=== PATIENT | female | born 1950 | race Caucasian/White ===

== ENCOUNTER 2022-06-20 07:13 | Inpatient (IN) | payer MEDICARE, MEDICAID ==
[2022-06-15 11:03] LABS: BASOPHILS # (AUTO) 0.1 X10'3 (0-0.2); BASOPHILS % (AUTO) 1.3 % (0-1); EOSINOPHILS # (AUTO) 0.6 X10'3 (0-0.9); EOSINOPHILS % (AUTO) 8.2 % (0-6); LYMPHOCYTES # (AUTO) 2.2 X10'3 (1.1-4.8); LYMPHOCYTES % (AUTO) 30.2 % (21-51); MEAN CORPUSCULAR HEMOGLOBIN 31.9 PG (27.0-31.0); MEAN CORPUSCULAR HGB CONC 34.3 g/dL (33.0-36.5); MEAN PLATELET VOLUME 10.9 FL (7.4-10.4); MONOCYTES # (AUTO) 0.8 X10'3 (0-0.9); MONOCYTES % (AUTO) 10.5 % (2-12); NEUTROPHILS # (AUTO) 3.6 X10'3 (1.8-7.7); NEUTROPHILS % (AUTO) 49.8 % (42-75); PRE OP HEMATOCRIT 38.9 % (35.0-45.0); PRE OP HEMOGLOBIN 13.3 g/dL (12.0-16.0); PRE OP PLATELET COUNT 203 X10'3 (140-440); RED BLOOD COUNT 4.18 X10'6 (4.20-5.60)
[2022-06-15 11:13] LABS: PRE OP PROTIME 19.4 SECONDS (9.0-12.0)
[2022-06-15 11:15] LABS: ALBUMIN 3.9 G/DL (3.4-5.0); ALBUMIN/GLOBULIN RATIO 0.9 (1.1-1.5); ALKALINE PHOSPHATASE 106 IU/L (46-116); BLOOD UREA NITROGEN 33 MG/DL (7-18); BUN/CREATININE RATIO 39.3 (6.6-38.0); CALCIUM 9.9 MG/DL (8.5-10.1); CHLORIDE 103 MMOL/L (99-107); CREATININE 0.84 MG/DL (0.40-0.90); PRE OP ALT 34 U/L (30-65); PRE OP ANION GAP 11 (8-16); PRE OP AST 39 U/L (10-37); PRE OP BILIRUB, TOTAL 0.4 MG/DL (0.0-1.0); PRE OP GLUCOSE 157 MG/DL (70-104); PRE OP POTASSIUM 3.6 MMOL/L (3.4-5.1); PRE OP SODIUM 142 MMOL/L (135-145); TOTAL CARBON DIOXIDE 28.3 MMOL/L (24-32); TOTAL PROTEIN 8.1 G/DL (6.4-8.2); eGFR 67 ML/MIN
[2022-06-15 11:26] LABS: HEMOGLOBIN A1C 6.5 % (4.5-6.2)
[~2022-06-20] VITALS: Ht 177.8 cm; Wt 95.1 kg
[2022-06-20] VITALS (19 sets, daily range): BP systolic 91–136; BP diastolic 31–85
[~2022-06-20 07:13] MED LIST: ACET-1013 PO; ATEN-236 PO; CELE-85 PO; DOCUMENT DATE & TIME OF BETA-BLOCKER PO ONE; FURO20TA4 PO; GEMF600T89 PO; LORA10TA7 PO; LOSA1TAB39 PO; METF-1203 PO; OMEP20CA16 PO; POTA8CAP20 PO; PRAV80TA3 PO; SERT-434 PO; WARF4TAB69 PO; ceFAZolin inj. 2,000 MG in dextrose 5%-water 100 ML IV ONE; famotidine 20mg tablet PO ONE; ringers solution, lacted 1,000 ML IV SCH; tranexamic acid 650mg tablet PO ONE; vancomycin 1,500 MG in NS 300ml IV soln IV ONE
--- NOTE | 2022-06-20 07:25 | NUR ---
PT PREPPED FOOR SURGERY, GOOD CMS IN RIGHT EXTREMITY. LEFT HAND HAS A BLUE TINGE TO IT IN THE FINGERTIPS, SENSATION IN INTACT ON BOTH EXTREMITIES, RADIAL PULSES MARKED. PT STATES SHE DID READ THE INFORMATION PACKET AND HAS TALKED TO PATIENTS AT [facility] THAT RECEIVED THE PROCEDURE PT USED THE SPECIAL SOAP FOR 5 DAYS INCLUDING TODAY AND SHE USED THE MURPURICIN IN HER NOSE.
--- NOTE | 2022-06-20 08:00 | NUR ---
3 attempts at IV start on left arm, 2 by me one by constantino with no results. picc nurse called, iv started in left forearm pt/ptt redrew as requested vancomycin ivpb started
[2022-06-20] MEDS ORDERED: fentaNYL/PF 50MCG/1 ML 2ML syringe IV PRN ×2 (08:50)
[2022-06-20] MEDS ORDERED: morphine 4 MG/ML inj SYRINge IV PRN (08:50)
[2022-06-20] MEDS ORDERED: labetalol 20mg/4ml (5mg/ml) syringe IV PRN (08:50)
[2022-06-20] MEDS ORDERED: hydrALAZINE 20mg/ml inj. IV PRN (08:50)
[2022-06-20] MEDS ORDERED: ringers solution, lacted 1,000 ML IV SCH (08:50)
[2022-06-20] MEDS ORDERED: ondansetron/PF 4mg/2ml inj IV PRN ×2 (08:50→14:45)
[2022-06-20] MEDS ORDERED: morphine 2 MG/ML inj. syringe IV PRN (08:50)
[2022-06-20] MEDS ORDERED: ROPIVAcaine 0.2%/PF PUMP/bolus 545 ML INTERSCALE SCH (09:15)
[2022-06-20] MEDS ORDERED: ROPIVAcaine 0.2% (10 MG/5 ML) BOLUS INJECTION INTERSCALE PRN (09:15)
[2022-06-20] MEDS ORDERED: ketorolac trometh. 30mg/ml inj. ONE (10:14)
[2022-06-20] MEDS ORDERED: ROPIVAcaine 0.5% (5mg/ml) 30ml vial ONE ×2 (10:14→11:24)
[2022-06-20] MEDS ORDERED: propofol inj 20 ML IV ONE (11:23)
[2022-06-20] MEDS ORDERED: LIDOcaine 2% (20mg/ml) 5ml vial ONE (11:23)
[2022-06-20] MEDS ORDERED: ondansetron/PF 4mg/2ml inj ONE (12:00)
[2022-06-20] MEDS ORDERED: dexamethasone sod phosphate 10mg/ml inj ONE (12:00)
[2022-06-20] MEDS ORDERED: LIDOcaine 1% (10mg/ml)w/preservative inj. 20ml MDV ONE (12:00)
[2022-06-20] MEDS ORDERED: sevoflurane 250ml liquid IH ONE (12:00)
[2022-06-20] MEDS ORDERED: midazolam 1 mg/ML 2ml injection ONE (12:10)
[2022-06-20] MEDS ORDERED: fentaNYL/PF 50MCG/1 ML 2ML syringe ONE (12:10)
[2022-06-20] MEDS ORDERED: ePHEDrine 50MG/ML INJ. ONE (12:40)
[2022-06-20] MEDS ORDERED: ketorolac trometh. 30mg/ml inj. IV ONE (13:33)
[2022-06-20] MEDS ORDERED: gelatin sponge, absorbable (Gelfoam 100) sponge TP ONE ×2 (13:33→13:37)
[2022-06-20] MEDS ORDERED: ROPIVAcaine 0.5% (5mg/ml) 30ml vial IJ ONE (13:33)
[2022-06-20] MEDS ORDERED: Thrombin (Bovine) 5,000 unit vial TP ONE ×2 (13:33→13:37)
[2022-06-20] MEDS ORDERED: acetaminophen 1,000mg/100ml IV 100 ML IV ONE (13:37)
[2022-06-20] MEDS ORDERED: labetalol 20mg/4ml (5mg/ml) syringe IV ONE (13:55)
--- NOTE | 2022-06-20 14:28 | NUR ---
Received from OR via , accompanied by Anesthesiologist GUCCI and OR NURSE report given by Anesthesiolgist. PT IS DROWSY YET FOLLOWS VERBAL COMMANDS. ON 10 LPM OF 02 ON MASK; ABLE TO TOLERATE 2 LPM OF 02 VIA NC. C/O PAIN TO SHOULDER AT A LEVEL OF 9 AND IS NAUSEA'S; MORPHINE AND ZOFRAN GIVEN WITH RELIEF. ONQ CATHETER TUBING IN PLACE AND MEDICINE ATTACHED. LYDIA DRAIN IN PLACE; BRIGHT RED BLOOD DRAINING. PT NENANA; LEFT HEARING AIDS AT HOME PER ANESTHESIOLOGIST. VSS Addendum: 06/20/22 at 1510 by Nicole Abreu RN Amended: Links added.
[2022-06-20] MEDS ORDERED: acetaminophen 325mg tablet PO PRN (14:45)
[2022-06-20] MEDS ORDERED: naloxone 0.4 mg/ml inj IV PRN (14:45)
[2022-06-20] MEDS ORDERED: magnesium hydroxide 30ml (MOM) UD suspension PO PRN (14:45)
[2022-06-20] MEDS ORDERED: non-formulary drug (Acetaminophen 1 TAB) PO PRN (14:45)
[2022-06-20] MEDS ORDERED: HYDROmorphone inj. 0.5 MG/0.5 ML DISP.SYRIN IV PRN (14:45)
[2022-06-20] MEDS ORDERED: diphenhydrAMINE 25mg capsule PO PRN ×2 (14:45)
[2022-06-20] MEDS ORDERED: HYDROmorphone 1 mg/ml syringe IV PRN (14:45)
[2022-06-20] MEDS ORDERED: bisacodyl 10mg suppository rectal RC PRN (14:45)
[2022-06-20] MEDS ORDERED: HYDROcodone/acetaminophen 10/325mg tab PO PRN ×2 (14:45)
--- NOTE | 2022-06-20 15:58 | NUR ---
Report called to receiving nurse. Transferred via BED. ONE BAG OF Belongings SENT WITH PT. VSS STABLE. REPORTS THAT PAIN IS AT AN ACCEPTABLE LEVEL. PT REPORTS SHE LEFT HEARING AIDS AND DENTURES AT HOME. LYDIA DRAIN WAS NOT EMPTIED BEFORE TRANSPORT TO FLOOR; RECEIVING NURSE NOTIFIED. . Special Issues communicated to receiving nurse. Addendum: 06/20/22 at 1611 by Nicole Abreu RN Amended: Links added.
--- NOTE | 2022-06-20 16:09 | NUR ---
Patient in room PAS IN 900. I have received report from Nicole BOLDEN and had the opportunity to ask questions and assume patient care.patients dressing to right shoulder CDI. LYDIA draining bright red blood, patient A&O x3. will continue to monitor
[2022-06-20] MEDS: potassium cl 20mEq in 1/2 NS 1,000 ML IV SCH ×2 (16:26→22:45)
[2022-06-20] MEDS: oxyCODONE IR 5mg (immed. release) tablet PO PRN ×2 (16:26→23:23)
[2022-06-20] MEDS: potassium chloride 8mEq ER tablet PO SCH (16:26)
--- NOTE | 2022-06-20 16:33 | NUR ---
patient 7/10 pain medicated as per emar. family present will continue to monitor
[2022-06-20] MEDS: ceFAZolin/D5W- 1GM premix 50 ML IV SCH ×2 (17:19→23:19)
--- NOTE | 2022-06-20 18:05 | NUR ---
Patient in room MAKEDA 356. I have received report from KIMI Matos and had the opportunity to ask questions and assume patient care.
[2022-06-20] MEDS: gemfibrozil 600mg tablet PO SCH (19:46)
[2022-06-20] MEDS: sennosides 8.6mg tablet PO SCH (19:46)
[2022-06-20] MEDS: acetaminophen 325mg tablet PO SCH (19:47)
[2022-06-20] MEDS ORDERED: vancomycin/NS 1 GM ADD-VANTAGE 250 ML IV SCH (20:00)
--- NOTE | 2022-06-20 23:57 | NUR ---
medicated for pain x2, powder pack changed q1hrly. LYDIA thacker drained 100mls . up to BSC x3,. DRessing to right shoulder CDI. Report given to og BOLDEN Addendum: 06/21/22 at 0007 by Opal Alonso RN report given to ezequiel bolden
[2022-06-21] MEDS: acetaminophen 325mg tablet PO SCH ×4 (01:54→20:09)
[2022-06-21] MEDS: potassium cl 20mEq in 1/2 NS 1,000 ML IV SCH ×3 (02:23→22:45)
[2022-06-21] MEDS: oxyCODONE IR 5mg (immed. release) tablet PO PRN ×4 (04:19→20:08)
--- NOTE | 2022-06-21 06:25 | NUR ---
Problems reprioritized. Patient report given, questions answered & plan of care reviewed with KIMI Tubbs.
[2022-06-21 07:20] VITALS: BP 133/47
[2022-06-21] MEDS: HYDROchlorothiazide 25mg tablet PO SCH (08:00)
[2022-06-21] MEDS: losartan 50mg tablet PO SCH (08:00)
[2022-06-21] MEDS: potassium chloride 8mEq ER tablet PO SCH (08:05)
[2022-06-21] MEDS: celeCOXIB 100mg capsule PO SCH (08:06)
[2022-06-21] MEDS: metFORMIN 500mg tablet PO SCH (08:07)
[2022-06-21] MEDS: furosemide 20MG tablet PO SCH (08:07)
[2022-06-21] MEDS: atenolol 25mg tablet PO SCH (08:10)
[2022-06-21] MEDS: atorvastatin 20mg tablet PO SCH (08:11)
[2022-06-21] MEDS: sertraline 50mg tablet PO SCH (08:11)
[2022-06-21] MEDS: loratadine 10mg tablet PO SCH (08:12)
[2022-06-21] MEDS: pantoprazole 40mg Tablet.DR PO SCH (08:12)
[2022-06-21] MEDS: gemfibrozil 600mg tablet PO SCH ×2 (09:15→20:09)
--- NOTE | 2022-06-21 09:44 | NUR ---
Joint surgery consult: Pt s/p R shoulder surgery this admit per EMR. Pt very hard of hearing; seen by TASH for written/verbal high protein diet ed w/ RD contact information provided. TASH encouraged pt to contact dietitian's office if further questions/concerns. Addendum: 06/21/22 at [address] Amended: Links added.
[2022-06-21 09:48] LABS: ANION GAP 11 (8-16); CHLORIDE 104 MMOL/L (99-107); POTASSIUM 3.5 MMOL/L (3.5-5.1); SODIUM 141 MMOL/L (135-145); TOTAL CARBON DIOXIDE 25.7 MMOL/L (24-32)
[2022-06-21 09:58] LABS: BASOPHILS % (AUTO) 0.4 % (0-1); EOSINOPHILS # (AUTO) 0.1 X10'3 (0-0.9); EOSINOPHILS % (AUTO) 0.7 % (0-6); HEMATOCRIT 30.2 % (35.0-45.0); HEMOGLOBIN 10.1 g/dl (12.0-16.0); LYMPHOCYTES # (AUTO) 1.5 X10'3 (1.1-4.8); LYMPHOCYTES % (AUTO) 12.7 % (21-51); MEAN CORPUSCULAR HEMOGLOBIN 31.8 PG (27.0-31.0); MEAN CORPUSCULAR HGB CONC 33.5 g/dL (33.0-36.5); MONOCYTES # (AUTO) 1.3 X10'3 (0-0.9); MONOCYTES % (AUTO) 10.8 % (2-12); NEUTROPHILS # (AUTO) 9.1 X10'3 (1.8-7.7); NEUTROPHILS % (AUTO) 75.4 % (42-75); PLATELET COUNT 162 X10'3 (140-440); RED BLOOD COUNT 3.18 X10'6 (4.20-5.60); RED CELL DISTRIBUTION WIDTH 13.8 % (11.5-14.5)
[2022-06-21 12:00] VITALS: BP 110/48
[2022-06-21 12:45] VITALS: BP 99/53
--- NOTE | 2022-06-21 17:34 | NUR ---
Student documentation: I have reviewed and agree with all interventions, assessments performed and documented by SN Agueda.
[2022-06-21 18:00] VITALS: BP 97/51
--- NOTE | 2022-06-21 18:37 | NUR ---
Problems reprioritized. Patient report given, questions answered & plan of care reviewed with KIMI Kirby.
[2022-06-21] MEDS: sennosides 8.6mg tablet PO SCH (20:07)
[2022-06-21] MEDS ORDERED: warfarin 4mg tablet PO SCH (21:00)
[2022-06-21 23:04] VITALS: BP 115/58
[2022-06-22] MEDS: acetaminophen 325mg tablet PO SCH ×3 (02:08→13:57)
[2022-06-22] MEDS: oxyCODONE IR 5mg (immed. release) tablet PO PRN ×2 (05:31→10:09)
[2022-06-22 06:36] VITALS: BP 117/50
[2022-06-22 06:56] LABS: BASOPHILS % (AUTO) 0.5 % (0-1); EOSINOPHILS # (AUTO) 0.5 X10'3 (0-0.9); EOSINOPHILS % (AUTO) 5.9 % (0-6); HEMOGLOBIN 9.8 g/dl (12.0-16.0); LYMPHOCYTES % (AUTO) 23.4 % (21-51); MEAN CORPUSCULAR HEMOGLOBIN 32.5 PG (27.0-31.0); MEAN CORPUSCULAR HGB CONC 34.9 g/dL (33.0-36.5); MEAN CORPUSCULAR VOLUME 93.1 FL (78-98); MEAN PLATELET VOLUME 11.3 FL (7.4-10.4); MONOCYTES # (AUTO) 0.9 X10'3 (0-0.9); MONOCYTES % (AUTO) 11.2 % (2-12); PLATELET COUNT 129 X10'3 (140-440); RED CELL DISTRIBUTION WIDTH 13.8 % (11.5-14.5); WHITE BLOOD COUNT 8.4 X10'3 (4.5-11.0)
[2022-06-22 07:00] VITALS: BP 113/56
[2022-06-22] MEDS: metFORMIN 500mg tablet PO SCH (07:44)
[2022-06-22] MEDS: atorvastatin 20mg tablet PO SCH (07:46)
[2022-06-22] MEDS: potassium chloride 8mEq ER tablet PO SCH (07:47)
[2022-06-22] MEDS: loratadine 10mg tablet PO SCH (07:47)
[2022-06-22] MEDS: furosemide 20MG tablet PO SCH (07:48)
[2022-06-22] MEDS: atenolol 25mg tablet PO SCH (07:49)
[2022-06-22] MEDS: celeCOXIB 100mg capsule PO SCH (07:49)
[2022-06-22] MEDS: pantoprazole 40mg Tablet.DR PO SCH (07:49)
[2022-06-22] MEDS: sertraline 50mg tablet PO SCH (07:50)
[2022-06-22] MEDS: losartan 50mg tablet PO SCH (08:00)
[2022-06-22] MEDS: HYDROchlorothiazide 25mg tablet PO SCH (08:00)
[2022-06-22 09:50] LABS: LARGE PLATELETS FEW; PLATELET ESTIMATE DECREASED
[2022-06-22] MEDS: gemfibrozil 600mg tablet PO SCH (10:09)
[2022-06-22 11:00] VITALS: BP 98/50
--- NOTE | 2022-06-22 13:40 | NUR ---
Report called to KIMI Ny at [facility]. All questions answered. Addendum: 06/22/22 at 1516 by Suly Hemphill RN Patient stable and appropriate for transfer to [facility]. IV removed, all belongings taken from room. Report called to receiving facility. All questions answered.
[2022-06-22] MEDS ORDERED: acetaminophen 325mg tablet PO PRN (14:45)
--- NOTE | 2022-06-28 10:48 | NUR ---
Case Management DC follow up : Patient discharge to [facility] for rehab.
== END 2022-06-22 14:24 | DRG 483 ==
LOC: PAS IN 07:13 → EDSTATUS 10:30 → SUR 3N 16:00
PROVIDERS: ADMIT Orthopaedic Surgery; ATTEND Orthopaedic Surgery
PROC: 0LS30ZZ Reposition Right Upper Arm Tendon, Open Approach (ICD-10-PCS; 2022-06-20)
PROC: 3E0T3BZ Introduction of Anesthetic Agent into Peripheral Nerves and Plexi, Percutaneous Approach (ICD-10-PCS; 2022-06-20)
PROC: 3E0T33Z Introduction of Anti-inflammatory into Peripheral Nerves and Plexi, Percutaneous Approach (ICD-10-PCS; 2022-06-20)
PROC: 0RRJ00Z Replacement of Right Shoulder Joint with Reverse Ball and Socket Synthetic Substitute, Open Approach (ICD-10-PCS; principal; 2022-06-20 12:00)
DX: M19.011 Primary osteoarthritis, right shoulder (principal); M65.811 Other synovitis and tenosynovitis, right shoulder; I10 Essential (primary) hypertension; E11.9 Type 2 diabetes mellitus without complications; K21.9 Gastro-esophageal reflux disease without esophagitis; E66.9 Obesity, unspecified; M75.122 Complete rotator cuff tear or rupture of left shoulder, not specified as traumatic; Z20.822 Contact with and (suspected) exposure to COVID-19; Z79.899 Other long term (current) drug therapy; Z68.30 Body mass index [BMI] 30.0-30.9, adult
CPT/HCPCS: 36415; 80051; 80053; 82948; 83036; 85008; 85025; 85610; 85730; 87081; 87811; 97110; 97116; 97161; 97530; A4615; A4618; A6449; A7000; C1776; G0378; J0131; J0690; J1100; J1170; J1885; J2250; J2270; J2405; J2704; J2795; J3010; J3370; J3480; J3490; J7040; J7060; J7120

== ENCOUNTER 2023-07-06 11:28 | Inpatient (IN) | payer MEDICARE, MEDICAID ==
[2023-06-27 12:18] LABS: BASOPHILS # (AUTO) 0.1 X10'3 (0-0.2); BASOPHILS % (AUTO) 0.9 % (0-1); EOSINOPHILS # (AUTO) 0.8 X10'3 (0-0.9); EOSINOPHILS % (AUTO) 8.9 % (0-6); LYMPHOCYTES # (AUTO) 3.1 X10'3 (1.1-4.8); LYMPHOCYTES % (AUTO) 33.4 % (21-51); MEAN CORPUSCULAR HEMOGLOBIN 31.6 PG (27.0-31.0); MEAN CORPUSCULAR HGB CONC 33.9 g/dL (33.0-36.5); MEAN CORPUSCULAR VOLUME 93.1 FL (78-98); MEAN PLATELET VOLUME 11.7 FL (7.4-10.4); MONOCYTES % (AUTO) 10.1 % (2-12); NEUTROPHILS # (AUTO) 4.4 X10'3 (1.8-7.7); NEUTROPHILS % (AUTO) 46.7 % (42-75); PRE OP HEMATOCRIT 38.9 % (35.0-45.0); PRE OP HEMOGLOBIN 13.2 g/dL (12.0-16.0); PRE OP PLATELET COUNT 202 X10'3 (140-440); PRE OP WHITE BLOOD COUNT 9.4 10'3 (4.8-10.8); RED BLOOD COUNT 4.18 X10'6 (4.20-5.60); RED CELL DISTRIBUTION WIDTH 13.6 % (11.5-14.5)
[2023-06-27 12:37] LABS: ALBUMIN 4.1 G/DL (3.4-5.0); ALBUMIN/GLOBULIN RATIO 1.1 (1.1-1.5); ALKALINE PHOSPHATASE 118 IU/L (46-116); BLOOD UREA NITROGEN 36 MG/DL (7-18); BUN/CREATININE RATIO 32.7 (10.0-20.0); CALCIUM 9.9 MG/DL (8.5-10.1); CHLORIDE 103 MMOL/L (99-107); PRE OP ALT 25 U/L (30-65); PRE OP ANION GAP 13 (8-16); PRE OP AST 29 U/L (10-37); PRE OP BILIRUB, TOTAL 0.5 MG/DL (0.0-1.0); PRE OP GLUCOSE 99 MG/DL (70-104); PRE OP POTASSIUM 3.9 MMOL/L (3.4-5.1); PRE OP SODIUM 142 MMOL/L (135-145); TOTAL CARBON DIOXIDE 26.2 MMOL/L (24-32); eGFR 49 ML/MIN
[2023-07-06] VITALS (18 sets, daily range): BP systolic 105–141; BP diastolic 44–90; PULSE 78–91; RESP 14–18; TEMP 98–99.1; O2SAT 93–98
[~2023-07-06] VITALS: Ht 177.8 cm; Wt 95.1 kg
[~2023-07-06 11:28] MED LIST changes: +CELE-127 PO; -CELE-85 PO; +DUPI300S SQ; +WARF1TAB83 PO; -ceFAZolin inj. 2,000 MG in dextrose 5%-water 100 ML IV ONE; +cefazolin 2gm/D5W 100mL 100 ML IV ONE
[2023-07-06 13:16] LABS: INR 1.1 INR; PROTHROMBIN TIME 11.4 SECONDS (9.0-12.0)
[2023-07-06 13:24] LABS: PRE OP PARTIAL THROMB. TIME 38 SECONDS (22-32)
[2023-07-06] MEDS ORDERED: morphine 4 MG/ML inj SYRINge IV PRN (14:25)
[2023-07-06] MEDS ORDERED: fentaNYL/PF 50MCG/1 ML 2ML syringe IV PRN ×2 (14:25)
[2023-07-06] MEDS ORDERED: ringers solution, lacted 1,000 ML IV SCH (14:25)
[2023-07-06] MEDS ORDERED: labetalol 20mg/4ml (5mg/ml) syringe IV PRN (14:25)
[2023-07-06] MEDS ORDERED: morphine 2 MG/ML inj. syringe IV PRN (14:25)
[2023-07-06] MEDS ORDERED: hydrALAZINE 20mg/ml inj. IV PRN (14:25)
[2023-07-06] MEDS ORDERED: ondansetron/PF 4mg/2ml inj IV PRN ×2 (14:25→18:45)
[2023-07-06] MEDS ORDERED: ketorolac trometh. 30mg/ml inj. ONE (15:49)
[2023-07-06] MEDS ORDERED: LIDOcaine 1%/PF 5ML 10 MG/ML VIAL ONE (15:58)
[2023-07-06] MEDS ORDERED: fentaNYL/PF 50MCG/1 ML 2ML syringe ONE ×2 (15:58→17:56)
[2023-07-06] MEDS ORDERED: ROPIVAcaine 0.5% (5mg/ml) 30ml vial ONE (15:58)
[2023-07-06] MEDS ORDERED: ondansetron/PF 4mg/2ml inj ONE ×2 (15:58→16:03)
[2023-07-06] MEDS ORDERED: propofol inj 20 ML IV ONE (15:58)
[2023-07-06] MEDS ORDERED: sevoflurane 250ml liquid IH ONE (16:03)
[2023-07-06] MEDS ORDERED: PHENYLephrine 10mg/ml 5ml injection IV ONE (16:03)
[2023-07-06] MEDS ORDERED: dexamethasone sod phosphate 10mg/ml inj ONE (16:03)
[2023-07-06] MEDS ORDERED: acetaminophen 1,000mg/100ml IV 100 ML IV ONE (16:42)
[2023-07-06] MEDS ORDERED: ePHEDrine 50MG/ML INJ. ONE (17:02)
[2023-07-06] MEDS ORDERED: ROPIVAcaine 0.2% (10 MG/5 ML) BOLUS INJECTION INTERSCALE PRN (17:25)
[2023-07-06] MEDS ORDERED: ROPIVAcaine 0.5% (5mg/ml) 30ml vial IJ ONE (17:26)
[2023-07-06] MEDS ORDERED: hydrALAZINE 20mg/ml inj. IV ONE (17:54)
[2023-07-06] MEDS ORDERED: labetalol 20mg/4ml (5mg/ml) syringe IV ONE (18:20)
--- NOTE | 2023-07-06 18:36 | NUR ---
Received from OR via HOSPITAL BED TO RR 7, accompanied by Anesthesiologist DR DUCKWORTH and report given by Anesthesiolgist. PT PRESENTS WITH 220G RIGHT FOREARM, LWFT SHOULDER WRAP WITH ON Q READY AND SLING, SPO2 95% MASK 6L, LR RUNNING AT 100MLS/HR, VSS. Addendum: 07/06/23 at 1924 by Orly Ortega RN, RN Amended: Links added.
[2023-07-06] MEDS ORDERED: bisacodyl 10mg suppository rectal RC PRN (18:45)
[2023-07-06] MEDS ORDERED: HYDROmorphone inj. 0.5 MG/0.5 ML DISP.SYRIN IV PRN (18:45)
[2023-07-06] MEDS ORDERED: acetaminophen 325mg tablet PO PRN (18:45)
[2023-07-06] MEDS ORDERED: diphenhydrAMINE 25mg capsule PO PRN ×2 (18:45)
[2023-07-06] MEDS ORDERED: HYDROmorphone 1 mg/ml syringe IV PRN (18:45)
[2023-07-06] MEDS ORDERED: oxyCODONE IR 5mg (immed. release) tablet PO PRN (18:45)
[2023-07-06] MEDS ORDERED: magnesium hydroxide 30ml (MOM) UD suspension PO PRN (18:45)
[2023-07-06] MEDS ORDERED: non-formulary drug (Acetaminophen 1 TAB) PO PRN (18:45)
[2023-07-06] MEDS ORDERED: naloxone 0.4 mg/ml inj IV PRN (18:45)
[2023-07-06] MEDS: ROPIVAcaine 0.2%/PF PUMP/bolus 545 ML INTERSCALE SCH (19:24)
--- NOTE | 2023-07-06 19:40 | NUR ---
Patient in room ORTHO 4011. I have received report from KIMI Arredondo and had the opportunity to ask questions and assume patient care.
--- NOTE | 2023-07-06 19:46 | NUR ---
Report called to receiving nurse KARLOS BOLDEN. Transferred via [facility] BED TO 4011B. BED IN LOW LOCKED POSITION WITH CALL LIGHT IN REACH, PT HOOKED UP TO BEDSIDE VITALS MACHINE. Belongings TAKE TO PT ROOM 2 PT BELONNNGING BAGS. Special Issues communicated to receiving nurse. Addendum: 07/06/23 at 1999 by Orly Ortega RN, RN Amended: Links added.
[2023-07-06] MEDS ORDERED: vancomycin/NS 1 GM ADD-VANTAGE 250 ML IV SCH (20:00)
[2023-07-06] MEDS: potassium cl 20mEq in 1/2 NS 1,000 ML IV SCH (20:20)
[2023-07-06] MEDS: metFORMIN 500mg tablet PO SCH (20:21)
[2023-07-06] MEDS: sennosides 8.6mg tablet PO SCH (20:21)
[2023-07-06] MEDS: acetaminophen 325mg tablet PO SCH (20:21)
[2023-07-06] MEDS: gemfibrozil 600mg tablet PO SCH (21:32)
[2023-07-07] VITALS (8 sets, daily range): BP systolic 97–127; BP diastolic 46–67; PULSE 88–101; RESP 16–24; TEMP 96.8–99.2; O2SAT 92–96
[2023-07-07] MEDS: ceFAZolin/D5W- 1GM premix 50 ML IV SCH ×2 (00:23→08:33)
[2023-07-07] MEDS: acetaminophen 325mg tablet PO SCH ×4 (01:41→20:47)
[2023-07-07] MEDS: oxyCODONE IR 5mg (immed. release) tablet PO PRN ×4 (02:46→22:51)
[2023-07-07] MEDS: potassium cl 20mEq in 1/2 NS 1,000 ML IV SCH ×3 (03:21→18:45)
--- NOTE | 2023-07-07 06:22 | NUR ---
Problems reprioritized. Patient report given, questions answered & plan of care reviewed with WONG Zacarias.
[2023-07-07 06:56] LABS: BASOPHILS % (AUTO) 0.3 % (0-1); EOSINOPHILS % (AUTO) 0.1 % (0-6); HEMATOCRIT 28.9 % (35.0-45.0); HEMOGLOBIN 9.8 g/dl (12.0-16.0); LYMPHOCYTES # (AUTO) 1.1 X10'3 (1.1-4.8); LYMPHOCYTES % (AUTO) 8.7 % (21-51); MEAN CORPUSCULAR HEMOGLOBIN 31.8 PG (27.0-31.0); MEAN CORPUSCULAR HGB CONC 33.7 g/dL (33.0-36.5); MEAN CORPUSCULAR VOLUME 94.1 FL (78-98); MEAN PLATELET VOLUME 12.2 FL (7.4-10.4); MONOCYTES % (AUTO) 7.9 % (2-12); NEUTROPHILS # (AUTO) 10.2 X10'3 (1.8-7.7); PLATELET COUNT 155 X10'3 (140-440); RED BLOOD COUNT 3.08 X10'6 (4.20-5.60); RED CELL DISTRIBUTION WIDTH 14.1 % (11.5-14.5); WHITE BLOOD COUNT 12.3 X10'3 (4.5-11.0)
[2023-07-07 07:05] LABS: INR 1.1 INR; PROTHROMBIN TIME 11.4 SECONDS (9.0-12.0)
[2023-07-07 07:26] LABS: ANION GAP 12 (8-16); CHLORIDE 106 MMOL/L (99-107); POTASSIUM 3.9 MMOL/L (3.5-5.1); SODIUM 139 MMOL/L (135-145); TOTAL CARBON DIOXIDE 21.1 MMOL/L (24-32)
[2023-07-07] MEDS: furosemide 20MG tablet PO SCH (08:00)
[2023-07-07] MEDS: atenolol 25mg tablet PO SCH (08:00)
[2023-07-07] MEDS: losartan 50mg tablet PO SCH (08:00)
[2023-07-07] MEDS: HYDROchlorothiazide 25mg tablet PO SCH (08:05)
[2023-07-07] MEDS: sertraline 50mg tablet PO SCH (08:05)
[2023-07-07] MEDS: potassium chloride 8mEq ER tablet PO SCH (08:06)
[2023-07-07] MEDS: pantoprazole 40mg Tablet.DR PO SCH (08:06)
[2023-07-07] MEDS: loratadine 10mg tablet PO SCH (08:06)
[2023-07-07] MEDS: metFORMIN 500mg tablet PO SCH ×2 (08:06→20:48)
[2023-07-07] MEDS: atorvastatin 20mg tablet PO SCH (08:06)
[2023-07-07] MEDS: celeCOXIB 100mg capsule PO SCH (08:06)
[2023-07-07] MEDS: gemfibrozil 600mg tablet PO SCH ×2 (08:15→20:48)
--- NOTE | 2023-07-07 09:14 | NUR ---
Per EMR pt POD #1 s/p reverse left TSA. Written high protein education with ONS coupons and RD contact information mailed to patient's address found in EMR d/t short staffing. Will continue to follow and provide verbal education as able. Addendum: 07/07/23 at [address] Amended: Links added.
[2023-07-07] MEDS ORDERED: FLU VACC QS2023-24(6MOS UP)/PF 60 MCG/0.5 ML SYRINGE IMVAC ONE (13:45)
--- NOTE | 2023-07-07 16:45 | NUR ---
I AGREE WITH MATA BACK CHARTING ON PHYSICAL ASSESSMENT.
--- NOTE | 2023-07-07 18:17 | NUR ---
Problems reprioritized. Patient report given, questions answered & plan of care reviewed with WONG Phillips.
[2023-07-07] MEDS: sennosides 8.6mg tablet PO SCH (20:47)
[2023-07-07] MEDS: warfarin 3mg tablet PO SCH ×2 (20:50→21:00)
--- NOTE | 2023-07-07 22:54 | NUR ---
patient in severe pain and her OnQ ball was set at 6ml/hr so increased to 12ml/hr and showed her how to give herself a bolus of it. Also gave her 10 of OxyIR.
--- NOTE | 2023-07-08 00:36 | NUR ---
AGREE WITH ASSMT BY LVN. Luis F COMBS CD&I. NON-PITTING AND COMFORTABLE AFTER ADMINISTRATION OF OXY IR.
[2023-07-08] MEDS: acetaminophen 325mg tablet PO SCH ×3 (02:04→14:09)
[2023-07-08] MEDS: potassium cl 20mEq in 1/2 NS 1,000 ML IV SCH ×2 (02:45→10:45)
[2023-07-08] MEDS: oxyCODONE IR 5mg (immed. release) tablet PO PRN ×4 (03:18→18:47)
[2023-07-08 05:43] LABS: PROTHROMBIN TIME 11.2 SECONDS (9.0-12.0)
[2023-07-08 05:46] LABS: BASOPHILS # (AUTO) 0.1 X10'3 (0-0.2); BASOPHILS % (AUTO) 0.6 % (0-1); EOSINOPHILS # (AUTO) 0.3 X10'3 (0-0.9); EOSINOPHILS % (AUTO) 2.9 % (0-6); HEMOGLOBIN 9.5 g/dl (12.0-16.0); LYMPHOCYTES % (AUTO) 21.1 % (21-51); MEAN CORPUSCULAR HEMOGLOBIN 32.4 PG (27.0-31.0); MEAN CORPUSCULAR HGB CONC 33.9 g/dL (33.0-36.5); MEAN CORPUSCULAR VOLUME 95.5 FL (78-98); MEAN PLATELET VOLUME 11.8 FL (7.4-10.4); MONOCYTES # (AUTO) 1.1 X10'3 (0-0.9); MONOCYTES % (AUTO) 11.5 % (2-12); NEUTROPHILS # (AUTO) 5.9 X10'3 (1.8-7.7); NEUTROPHILS % (AUTO) 63.9 % (42-75); PLATELET COUNT 128 X10'3 (140-440); RED BLOOD COUNT 2.93 X10'6 (4.20-5.60); RED CELL DISTRIBUTION WIDTH 13.8 % (11.5-14.5); WHITE BLOOD COUNT 9.3 X10'3 (4.5-11.0)
[2023-07-08 06:00] VITALS: BP 114/58; PULSE 83; RESP 20; TEMP 97.6; O2SAT 94
--- NOTE | 2023-07-08 06:14 | NUR ---
Problems reprioritized. Patient report given, questions answered & plan of care reviewed with
[2023-07-08] MEDS: atorvastatin 20mg tablet PO SCH (07:28)
[2023-07-08] MEDS: gemfibrozil 600mg tablet PO SCH ×2 (07:28→20:05)
[2023-07-08] MEDS: furosemide 20MG tablet PO SCH (07:28)
[2023-07-08] MEDS: metFORMIN 500mg tablet PO SCH ×2 (07:29→20:05)
[2023-07-08] MEDS: potassium chloride 8mEq ER tablet PO SCH (07:29)
[2023-07-08] MEDS: loratadine 10mg tablet PO SCH (07:29)
[2023-07-08] MEDS: pantoprazole 40mg Tablet.DR PO SCH (07:29)
[2023-07-08] MEDS: celeCOXIB 100mg capsule PO SCH (07:29)
[2023-07-08] MEDS: HYDROchlorothiazide 25mg tablet PO SCH (07:29)
[2023-07-08] MEDS: atenolol 25mg tablet PO SCH (07:29)
[2023-07-08] MEDS: sertraline 50mg tablet PO SCH (07:30)
[2023-07-08] MEDS: losartan 50mg tablet PO SCH (07:32)
[2023-07-08 08:00] VITALS: RESP 16; O2SAT 98
[2023-07-08 08:22] LABS: LARGE PLATELETS FEW; PLATELET ESTIMATE DECREASED
[2023-07-08 08:23] LABS: ROULEAUX 1+
[2023-07-08] MEDS: ROPIVAcaine 0.2%/PF PUMP/bolus 545 ML INTERSCALE SCH (17:25)
--- NOTE | 2023-07-08 17:59 | NUR ---
I REVIEWED WITH AND AGREE WITH MATA BACK PHYSICAL ASSESSMENT ON THIS PT.
[2023-07-08 18:00] VITALS: BP 89/39; PULSE 78; RESP 16; TEMP 97.2; O2SAT 97
--- NOTE | 2023-07-08 18:00 | NUR ---
Patient in room ORTHO 4011. I have received report from WONG Reyes and had the opportunity to ask questions and assume patient care.
--- NOTE | 2023-07-08 18:13 | NUR ---
Problems reprioritized. Patient report given, questions answered & plan of care reviewed with KIMI Hilario.
[2023-07-08] MEDS ORDERED: acetaminophen 325mg tablet PO PRN (18:45)
[2023-07-08] MEDS: sennosides 8.6mg tablet PO SCH (20:05)
[2023-07-08] MEDS ORDERED: warfarin 4mg tablet PO SCH (21:00)
[2023-07-08 22:00] VITALS: BP 105/51; PULSE 75; RESP 16; TEMP 97.8; O2SAT 93
[2023-07-09] MEDS: oxyCODONE IR 5mg (immed. release) tablet PO PRN ×4 (01:15→11:06)
--- NOTE | 2023-07-09 05:58 | NUR ---
Problems reprioritized. Patient report given, questions answered & plan of care reviewed with WONG Zacarias.
[2023-07-09 06:00] VITALS: BP 120/74; PULSE 90; RESP 16; TEMP 98.9; O2SAT 99
[2023-07-09 06:12] LABS: BASOPHILS # (AUTO) 0.1 X10'3 (0-0.2); BASOPHILS % (AUTO) 0.5 % (0-1); EOSINOPHILS # (AUTO) 0.8 X10'3 (0-0.9); EOSINOPHILS % (AUTO) 6.9 % (0-6); HEMATOCRIT 30.8 % (35.0-45.0); HEMOGLOBIN 10.3 g/dl (12.0-16.0); LYMPHOCYTES # (AUTO) 2.1 X10'3 (1.1-4.8); LYMPHOCYTES % (AUTO) 19.3 % (21-51); MEAN CORPUSCULAR HEMOGLOBIN 31.9 PG (27.0-31.0); MEAN CORPUSCULAR HGB CONC 33.6 g/dL (33.0-36.5); MEAN CORPUSCULAR VOLUME 94.9 FL (78-98); MONOCYTES # (AUTO) 1.2 X10'3 (0-0.9); MONOCYTES % (AUTO) 10.8 % (2-12); NEUTROPHILS # (AUTO) 6.9 X10'3 (1.8-7.7); NEUTROPHILS % (AUTO) 62.5 % (42-75); PLATELET COUNT 148 X10'3 (140-440); RED BLOOD COUNT 3.24 X10'6 (4.20-5.60); RED CELL DISTRIBUTION WIDTH 14.1 % (11.5-14.5); WHITE BLOOD COUNT 11.1 X10'3 (4.5-11.0)
[2023-07-09 06:20] LABS: INR 1.1 INR; PROTHROMBIN TIME 12.2 SECONDS (9.0-12.0)
--- NOTE | 2023-07-09 06:22 | NUR ---
Patient in room ORTHO 4011. I have received report from KIMI Chowdary and had the opportunity to ask questions and assume patient care.
[2023-07-09] MEDS: potassium chloride 8mEq ER tablet PO SCH (07:39)
[2023-07-09] MEDS: atorvastatin 20mg tablet PO SCH (07:39)
[2023-07-09] MEDS: metFORMIN 500mg tablet PO SCH (07:40)
[2023-07-09] MEDS: pantoprazole 40mg Tablet.DR PO SCH (07:40)
[2023-07-09] MEDS: furosemide 20MG tablet PO SCH (07:40)
[2023-07-09] MEDS: gemfibrozil 600mg tablet PO SCH (07:40)
[2023-07-09] MEDS: losartan 50mg tablet PO SCH (07:42)
[2023-07-09] MEDS: loratadine 10mg tablet PO SCH (07:43)
[2023-07-09] MEDS: HYDROchlorothiazide 25mg tablet PO SCH (07:43)
[2023-07-09] MEDS: sertraline 50mg tablet PO SCH (07:43)
[2023-07-09] MEDS: atenolol 25mg tablet PO SCH (07:43)
[2023-07-09] MEDS: celeCOXIB 100mg capsule PO SCH (07:43)
[2023-07-09] MEDS: warfarin 3mg tablet PO SCH ×2 (07:55→08:00)
[2023-07-09 08:00] VITALS: RESP 16; O2SAT 99
[2023-07-09 10:00] VITALS: BP 92/55; PULSE 81; RESP 16; TEMP 98.7; O2SAT 95
--- NOTE | 2023-07-09 10:53 | NUR ---
Oxy IR was not administered at 0732. Documented on accident while attempting to complete reassessment on patient. Addendum: 07/09/23 at 1055 by Eric Ortega LVN, LVN Oxy IR was not administered at 0757. Documented on accident while attempting to complete reassessment on patient.
[2023-07-09] MEDS ORDERED: HYDROcodone/acetaminophen 10/325mg tab PO ONE ×3 (14:10→14:40)
[2023-07-09 14:42] VITALS: RESP 10
--- NOTE | 2023-07-09 15:47 | NUR ---
Pt stable for transfer. IV D/C prior to d/c. Patient left with all belongings. Patient was picked up my [facility] personnel in wheelchair and left in [facility] to go to [facility]. Report called in to WONG Hugn.
[2023-07-11] MEDS ORDERED: DUPILUMAB SQ SCH (08:00)
== END 2023-07-09 14:45 | DRG 483 ==
LOC: PAS IN 11:28 → ORTHO 4S 20:00
PROVIDERS: ADMIT Orthopaedic Surgery; ATTEND Orthopaedic Surgery
PROC: 0RRK00Z Replacement of Left Shoulder Joint with Reverse Ball and Socket Synthetic Substitute, Open Approach (ICD-10-PCS; 2023-07-06)
PROC: 3E0T3BZ Introduction of Anesthetic Agent into Peripheral Nerves and Plexi, Percutaneous Approach (ICD-10-PCS; 2023-07-06)
PROC: 0RPK0JZ Removal of Synthetic Substitute from Left Shoulder Joint, Open Approach (ICD-10-PCS; principal; 2023-07-06 16:03)
DX: T84.098A Other mechanical complication of other internal joint prosthesis, initial encounter (principal); M19.012 Primary osteoarthritis, left shoulder; X58.XXXA Exposure to other specified factors, initial encounter; M75.122 Complete rotator cuff tear or rupture of left shoulder, not specified as traumatic; Z88.2 Allergy status to sulfonamides; Z91.040 Latex allergy status
CPT/HCPCS: 36415; 73030; 80051; 80053; 82948; 85008; 85025; 85610; 85730; 87081; 93005; 97110; 97116; 97161; 97530; A4615; A4618; A7000; C1713; C1776; G0378; J0131; J0360; J0690; J1100; J1885; J2370; J2405; J2704; J2795; J3010; J3370; J3480; J3490; J7120; Q0163

== ENCOUNTER 2023-12-04 10:12 | Inpatient (IN) | payer MEDICARE, MEDICAID ==
[2023-12-04] VITALS (23 sets, daily range): BP systolic 83–173; BP diastolic 42–99; PULSE 69–97; RESP 12–21; TEMP 96–98.1; O2SAT 92–98
[~2023-12-04] VITALS: Ht 177.8 cm; Wt 89.9 kg
[2023-12-04] MEDS: DOCUMENT DATE & TIME OF BETA-BLOCKER PO ONE (05:30)
[2023-12-04] MEDS: cefazolin 2gm/D5W 100mL 100 ML IV ONE (05:30)
[2023-12-04] MEDS: vancomycin 1,500 MG in NS 300ml IV soln IV ONE (05:30)
[~2023-12-04 10:12] MED LIST changes: -ACET-1013 PO; -DOCUMENT DATE & TIME OF BETA-BLOCKER PO ONE; -DUPI300S SQ; +HYDR-3973 PO; -OMEP20CA16 PO; -WARF1TAB83 PO; -WARF4TAB69 PO; +WARF6TAB49 PO; -cefazolin 2gm/D5W 100mL 100 ML IV ONE; -famotidine 20mg tablet PO ONE; -ringers solution, lacted 1,000 ML IV SCH; -tranexamic acid 650mg tablet PO ONE; -vancomycin 1,500 MG in NS 300ml IV soln IV ONE
[2023-12-04 11:56] LABS: PRE OP PROTIME 17.4 SECONDS (9.0-12.0)
[2023-12-04] MEDS ORDERED: ROPIVAcaine 0.5% (5mg/ml) 30ml vial ONE ×2 (11:58→15:16)
[2023-12-04 11:59] LABS: PRE OP INR 1.7 INR
[2023-12-04] MEDS ORDERED: ketorolac trometh. 30mg/ml inj. ONE (11:59)
[2023-12-04] MEDS: ringers solution, lacted 1,000 ML IV SCH ×2 (12:08→17:25)
[2023-12-04] MEDS: famotidine 20mg tablet PO ONE (12:08)
[2023-12-04] MEDS: tranexamic acid 650mg tablet PO ONE (12:09)
[2023-12-04 12:10] LABS: BASOPHILS # (AUTO) 0.1 X10'3 (0-0.2); BASOPHILS % (AUTO) 1.4 % (0-1); EOSINOPHILS # (AUTO) 0.6 X10'3 (0-0.9); EOSINOPHILS % (AUTO) 7.4 % (0-6); LYMPHOCYTES # (AUTO) 2.9 X10'3 (1.1-4.8); LYMPHOCYTES % (AUTO) 34.7 % (21-51); MEAN CORPUSCULAR HGB CONC 33.2 g/dL (33.0-36.5); MEAN CORPUSCULAR VOLUME 87.4 FL (78-98); MEAN PLATELET VOLUME 10.9 FL (7.4-10.4); MONOCYTES # (AUTO) 0.8 X10'3 (0-0.9); MONOCYTES % (AUTO) 10.1 % (2-12); NEUTROPHILS # (AUTO) 3.9 X10'3 (1.8-7.7); NEUTROPHILS % (AUTO) 46.4 % (42-75); PRE OP HEMATOCRIT 39.5 % (35.0-45.0); PRE OP HEMOGLOBIN 13.1 g/dL (12.0-16.0); PRE OP PLATELET COUNT 199 X10'3 (140-440); PRE OP WHITE BLOOD COUNT 8.3 10'3 (4.8-10.8); RED BLOOD COUNT 4.51 X10'6 (4.20-5.60); RED CELL DISTRIBUTION WIDTH 15.5 % (11.5-14.5)
[2023-12-04] MEDS: VANCOMYCIN 1,500MG inj. 1,500 MG in normal saline 500ml IV soln 300 ML IV ONE (13:05)
[2023-12-04 13:23] LABS: ALANINE AMINOTRANSFERASE 19 U/L (12-78); ALBUMIN 3.6 G/DL (3.4-5.0); ALBUMIN/GLOBULIN RATIO 0.9 (1.1-1.5); ALKALINE PHOSPHATASE 111 IU/L (46-116); ANION GAP 13 (8-16); ASPARTATE AMINO TRANSFERASE 25 U/L (10-37); BILIRUBIN,TOTAL 0.5 MG/DL (0.1-1.0); BLOOD UREA NITROGEN 23 MG/DL (7-18); BUN/CREATININE RATIO 27.7 (10.0-20.0); CALCIUM 9.5 MG/DL (8.5-10.1); CHLORIDE 105 MMOL/L (99-107); CREATININE 0.83 MG/DL (0.40-0.90); GLUCOSE 111 MG/DL (70-104); POTASSIUM 3.4 MMOL/L (3.5-5.1); SODIUM 145 MMOL/L (135-145); TOTAL CARBON DIOXIDE 26.9 MMOL/L (24-32); TOTAL PROTEIN 7.5 G/DL (6.4-8.2); eCRCL 66 ML/MIN; eGFR 68 ML/MIN
[2023-12-04] MEDS ORDERED: sevoflurane 250ml liquid IH ONE (14:40)
[2023-12-04] MEDS ORDERED: cloNIDine hcl/PF 100mcg/ml inj ONE (14:41)
[2023-12-04] MEDS ORDERED: midazolam 1 mg/ML 2ml injection ONE (14:43)
[2023-12-04] MEDS ORDERED: fentaNYL/PF 50MCG/1 ML 2ML syringe ONE (14:43)
[2023-12-04] MEDS ORDERED: dexamethasone sod phosphate 4mg/ml inj. ONE (15:16)
[2023-12-04] MEDS ORDERED: propofol inj 20 ML IV ONE (15:16)
[2023-12-04] MEDS ORDERED: LIDOcaine 1%/PF 5ML 10 MG/ML VIAL ONE (15:16)
[2023-12-04] MEDS ORDERED: rocuronium 10mg/ml inj IV ONE (15:16)
[2023-12-04] MEDS ORDERED: LIDOcaine 2% (20mg/ml) 5ml vial ONE (15:16)
[2023-12-04] MEDS ORDERED: tobramycin sulfate 1.2gm vial ONE (15:21)
[2023-12-04] MEDS ORDERED: vancomycin 1,000mg inj ONE (15:21)
[2023-12-04] MEDS ORDERED: OXYC-658 PO (15:25)
[2023-12-04] MEDS ORDERED: ondansetron/PF 4mg/2ml inj ONE (16:56)
[2023-12-04 17:16] LABS: APPEARANCE,SYNOVIAL FLUID CLOUDY; COLOR,SYNOVIAL FLUID RED; LYMPHOCYTES,SYNOVIAL FLUID 31 % (0-75); MONOCYTES,SYNOVIAL FLUID 15 % (0-0); NEUTROPHILS,SYNOVIAL FLUID 43 % (0-25); SYN RBC 258750 /CU MM (0); SYN WBC 194 /CU MM (0-200)
[2023-12-04] MEDS ORDERED: morphine 4 MG/ML inj SYRINge IV PRN (17:25)
[2023-12-04] MEDS ORDERED: proCHLORperazine 10 MG/2 ml inj IV PRN (17:25)
[2023-12-04] MEDS ORDERED: HYDROmorphone/PF 0.2 MG/ML SYRINGE IV PRN ×2 (17:25)
[2023-12-04] MEDS ORDERED: hydrALAZINE 20mg/ml inj. IV PRN (17:25)
[2023-12-04] MEDS ORDERED: labetalol 20mg/4ml (5mg/ml) syringe IV PRN (17:25)
[2023-12-04] MEDS ORDERED: ondansetron/PF 4mg/2ml inj IV PRN ×2 (17:25→17:55)
[2023-12-04] MEDS ORDERED: meperidine/PF 25mg/ml syringe IV PRN (17:25)
[2023-12-04] MEDS: morphine 2 MG/ML inj. syringe IV PRN (17:48)
[2023-12-04] MEDS: acetaminophen 1,000mg/100ml IV 100 ML IV ONE (17:48)
[2023-12-04] MEDS ORDERED: HYDROmorphone inj. 0.5 MG/0.5 ML DISP.SYRIN IV PRN (17:55)
[2023-12-04] MEDS ORDERED: magnesium hydroxide 30ml (MOM) UD suspension PO PRN (17:55)
[2023-12-04] MEDS ORDERED: diphenhydrAMINE 25mg capsule PO PRN ×2 (17:55)
[2023-12-04] MEDS ORDERED: acetaminophen 325mg tablet PO PRN (17:55)
[2023-12-04] MEDS ORDERED: bisacodyl 10mg suppository rectal RC PRN (17:55)
[2023-12-04] MEDS ORDERED: HYDROmorphone 1 mg/ml syringe IV PRN (17:55)
[2023-12-04] MEDS ORDERED: oxyCODONE IR 5mg (immed. release) tablet PO PRN (17:55)
[2023-12-04] MEDS: oxyCODONE IR 5mg (immed. release) tablet PO PRN (20:19)
[2023-12-04] MEDS: gemfibrozil 600mg tablet PO SCH (20:20)
[2023-12-04] MEDS: metFORMIN 500mg tablet PO SCH (20:20)
[2023-12-04] MEDS: sennosides 8.6mg tablet PO SCH (20:20)
[2023-12-04] MEDS: acetaminophen 325mg tablet PO SCH (20:24)
[2023-12-04] MEDS: vancomycin/NS 1 GM ADD-VANTAGE 250 ML IV SCH (21:36)
[2023-12-04] MEDS: potassium cl 20mEq in 1/2 NS 1,000 ML IV SCH (23:37)
[2023-12-04] MEDS: ceFAZolin/D5W- 1GM premix 50 ML IV SCH (23:37)
[2023-12-05] VITALS (8 sets, daily range): BP systolic 93–110; BP diastolic 44–62; PULSE 74–83; RESP 14–18; TEMP 96.2–98.3; O2SAT 93–94
[2023-12-05] MEDS: atorvastatin 20mg tablet PO SCH (07:52)
[2023-12-05] MEDS: aspirin 325mg tablet PO SCH (07:52)
[2023-12-05] MEDS: celeCOXIB 100mg capsule PO SCH (07:53)
[2023-12-05] MEDS: sertraline 50mg tablet PO SCH (07:54)
[2023-12-05] MEDS: losartan 50mg tablet PO SCH (07:55)
[2023-12-05] MEDS: loratadine 10mg tablet PO SCH (07:56)
[2023-12-05] MEDS: HYDROchlorothiazide 25mg tablet PO SCH (07:56)
[2023-12-05] MEDS: furosemide 20MG tablet PO SCH (07:56)
[2023-12-05] MEDS: potassium chloride 8mEq ER tablet PO SCH (08:00)
[2023-12-05] MEDS: atenolol 25mg tablet PO SCH (08:00)
[2023-12-05] MEDS ORDERED: non-formulary drug (Celecoxib 1 CAP) PO SCH (08:00)
[2023-12-05] MEDS ORDERED: celeCOXIB 100mg capsule PO SCH (20:00)
[2023-12-05] MEDS: warfarin 3mg tablet PO SCH (20:20)
[2023-12-06] VITALS (11 sets, daily range): BP systolic 90–149; BP diastolic 56–70; PULSE 71–95; RESP 15–18; TEMP 97.4–98.7; O2SAT 94–97
[2023-12-06 07:26] LABS: BASOPHILS # (AUTO) 0.1 X10'3 (0-0.2); EOSINOPHILS # (AUTO) 0.4 X10'3 (0-0.9); EOSINOPHILS % (AUTO) 5.1 % (0-6); HEMATOCRIT 33.6 % (35.0-45.0); HEMOGLOBIN 11.3 g/dl (12.0-16.0); LYMPHOCYTES # (AUTO) 1.7 X10'3 (1.1-4.8); LYMPHOCYTES % (AUTO) 21.3 % (21-51); MEAN CORPUSCULAR HEMOGLOBIN 29.5 PG (27.0-31.0); MEAN CORPUSCULAR HGB CONC 33.7 g/dL (33.0-36.5); MEAN CORPUSCULAR VOLUME 87.4 FL (78-98); MEAN PLATELET VOLUME 10.9 FL (7.4-10.4); MONOCYTES # (AUTO) 0.9 X10'3 (0-0.9); MONOCYTES % (AUTO) 11.7 % (2-12); NEUTROPHILS # (AUTO) 4.8 X10'3 (1.8-7.7); NEUTROPHILS % (AUTO) 60.9 % (42-75); PLATELET COUNT 141 X10'3 (140-440); RED BLOOD COUNT 3.84 X10'6 (4.20-5.60); RED CELL DISTRIBUTION WIDTH 15.5 % (11.5-14.5); WHITE BLOOD COUNT 7.8 X10'3 (4.5-11.0)
[2023-12-06 07:35] LABS: INR 1.2 INR
[2023-12-06 08:02] LABS: ANION GAP 9 (8-16); CHLORIDE 107 MMOL/L (99-107); POTASSIUM 3.6 MMOL/L (3.5-5.1); SODIUM 143 MMOL/L (135-145); TOTAL CARBON DIOXIDE 27.2 MMOL/L (24-32)
[2023-12-06 08:19] LABS: ELLIPTOCYTES FEW; PLATELET ESTIMATE NORMAL; TEAR DROP CELLS FEW
[2023-12-06 08:20] LABS: ACANTHOCYTES FEW
[2023-12-06] MEDS: oxyCODONE IR 5mg (immed. release) tablet PO PRN (11:04)
[2023-12-06] MEDS ORDERED: acetaminophen 325mg tablet PO PRN (13:15)
[2023-12-07 06:00] VITALS: BP 122/67; PULSE 77; RESP 18; TEMP 97.8; O2SAT 98
[2023-12-07 07:00] VITALS: RESP 18; O2SAT 98
[2023-12-07 07:38] VITALS: BP_SYST 146; PULSE 75
[2023-12-07 08:08] LABS: BASOPHILS # (AUTO) 0.1 X10'3 (0-0.2); EOSINOPHILS # (AUTO) 0.5 X10'3 (0-0.9); MONOCYTES # (AUTO) 0.8 X10'3 (0-0.9); PLATELET COUNT 158 X10'3 (140-440)
[2023-12-07 08:10] LABS: EOSINOPHILS % (AUTO) 7.6 % (0-6); HEMOGLOBIN 11.6 g/dl (12.0-16.0); LYMPHOCYTES # (AUTO) 1.7 X10'3 (1.1-4.8); LYMPHOCYTES % (AUTO) 24.8 % (21-51); MEAN CORPUSCULAR HEMOGLOBIN 29.1 PG (27.0-31.0); MEAN CORPUSCULAR VOLUME 88.2 FL (78-98); MEAN PLATELET VOLUME 11.3 FL (7.4-10.4); MONOCYTES % (AUTO) 12.2 % (2-12); NEUTROPHILS # (AUTO) 3.8 X10'3 (1.8-7.7); NEUTROPHILS % (AUTO) 54.4 % (42-75); RED BLOOD COUNT 3.97 X10'6 (4.20-5.60); WHITE BLOOD COUNT 6.9 X10'3 (4.5-11.0)
[2023-12-07 08:22] LABS: INR 1.3 INR; PROTHROMBIN TIME 13.1 SECONDS (9.0-12.0)
[2023-12-07 10:53] VITALS: RESP 16
== END 2023-12-07 11:00 | DRG 483 ==
LOC: UNDOADMIN 10:12 → PAS IN 10:12 → ORTHO 4S 17:54 → UNDODISIN 12-07 11:00
PROVIDERS: ADMIT Orthopaedic Surgery; ATTEND Orthopaedic Surgery
PROC: 0RPK0JZ Removal of Synthetic Substitute from Left Shoulder Joint, Open Approach (ICD-10-PCS; 2023-12-04)
PROC: 0RRK0JZ Replacement of Left Shoulder Joint with Synthetic Substitute, Open Approach (ICD-10-PCS; principal; 2023-12-04 14:40)
DX: T84.028A Dislocation of other internal joint prosthesis, initial encounter (principal); M80.022A Age-related osteoporosis with current pathological fracture, left humerus, initial encounter for fracture; M75.122 Complete rotator cuff tear or rupture of left shoulder, not specified as traumatic; X58.XXXA Exposure to other specified factors, initial encounter; G89.29 Other chronic pain; Y83.8 Other surgical procedures as the cause of abnormal reaction of the patient, or of later complication, without mention of misadventure at the time of the procedure; Y92.89 Other specified places as the place of occurrence of the external cause; Z88.2 Allergy status to sulfonamides; Z91.040 Latex allergy status
CPT/HCPCS: 36415; 80051; 80053; 82948; 85008; 85025; 85610; 85730; 87070; 87081; 89051; 97110; 97116; 97161; 97530; A4615; A4618; A6258; A7000; C1713; C1776; G0378; J0131; J0690; J0735; J1100; J1885; J2250; J2270; J2405; J2704; J2795; J3010; J3260; J3370; J3480; J3490; J7120

== ENCOUNTER → 2024-01-30 | Outpatient (CLI) | payer MEDICARE, MEDICAID ==
[~2024-01-30] MED LIST changes: -HYDR-3973 PO; +OXYC-658 PO
== END | disposition home or self-care (01) ==
LOC: 64 CT 12:50
PROVIDERS: ATTEND Orthopaedic Surgery
DX: S43.392A Subluxation of other parts of left shoulder girdle, initial encounter (principal); M75.122 Complete rotator cuff tear or rupture of left shoulder, not specified as traumatic; M65.812 Other synovitis and tenosynovitis, left shoulder; M25.412 Effusion, left shoulder; T84.019A Broken internal joint prosthesis, unspecified site, initial encounter; Z96.612 Presence of left artificial shoulder joint; X58.XXXA Exposure to other specified factors, initial encounter; Y93.89 Activity, other specified; Y92.89 Other specified places as the place of occurrence of the external cause; Y99.8 Other external cause status
CPT/HCPCS: 73200